=== PATIENT | male | born 1940 | race Caucasian/White ===

== ENCOUNTER → 2020-05-17 07:52 | Outpatient (BNVA) | payer MEDICARE, BC, SELFPAY | PROVIDERS: PCP Family Medicine; Referring Provider Family Medicine; Visit Provider Student in an Organized Health Care Education/Training Program | DX: M16.12 Unilateral primary osteoarthritis, left hip (principal) | CPT/HCPCS: 99203 ==

== ENCOUNTER 2020-06-24 01:36 | Outpatient (CLI) | payer MEDICARE, BC, SELFPAY ==
--- NOTE | 2020-06-24 14:11 | DI.RAD_ITS ---
EXAM: RF JOINT INJECTION FLUORO GUID CLINICAL HISTORY: L HIP INJ UNDER FLUORO,PRIMARY OA LT HIP, M16.12 TECHNIQUE: 2D and realtime digital imaging was performed. CONTRAST MATERIAL: Refer to procedure report. COMPARISON: No exams were available for comparison FINDINGS: Fluoroscopy was provided for Dr. Silva during left hip joint injection. Please refer to the monica hawk report for complete details. Fluoro time: 7 seconds IMPRESSION:
--- NOTE | 2020-06-24 14:15 | W.PROCNOTE ---
Date of service: 06/24/20 Time of Service: 14:15 Procedure Note Date of procedure: 06/24/20 Procedure: Left Hip Injection with Fluoroscopic Guidance Surgeon/Proceduralist/Physician: Xavier Silva Procedure Diagnosis: Left Hip Osteoarthritis Procedure Indications: Dileep has had persistent pain of the LEFT hip and groin. Noninvasive measures have been tried. To serve as both diagnostic and therapeutic, an injection under fluoroscopy was recommended. I had discussed the risks of the procedure and the patient elected to proceed. Procedure Description: Dileep was greeted in the flouroscopy room. The correct side was identified and the consent was reviewed with the patient and signed. The patient was then placed in the supine position on the fluoroscopy table. The LEFT hip was then prepped with Chloraprep. The anterolateral injection starting point was identiifed by bony landmarks and fluoroscopy. The skin and soft tissue in the tract of the injection was anesthetized with 1% Lidocaine. A spinal needle was then inserted deep into the hip joint at the level of the lateral femoral neck under fluoroscopic guidance. A small amount of Omnipaque solution was injected to confirm intraarticular placement. Once confirmed, the hip was injected with 6cc of 0.5% Bupivicaine and 80mg of Depo-Medrol. A bandaid was placed on the injection site. The patient tolerated the procedure well and noted improvement in pre-injection pain.
[2020-06-24] MEDS: Omnipaque 300 MG/ML 10 ML BTL IJ (14:32)
[2020-06-24] MEDS: Bupivacaine 0.5% Pres-Free 10 ML VIAL 6 ML IV (14:34)
[2020-06-24] MEDS: methylPREDNISolone ACETATE 80 MG/ML VIAL IM (14:35)
== END 2020-06-24 01:56 ==
PROVIDERS: PCP Family Medicine; Visit Provider Student in an Organized Health Care Education/Training Program
DX: M16.12 Unilateral primary osteoarthritis, left hip (principal); M25.562 Pain in left knee
CPT/HCPCS: 20610; 77002; J1040

== ENCOUNTER 2020-09-02 13:41 | Outpatient (CLI) | payer MEDICARE, BC, SELFPAY ==
--- NOTE | 2020-09-02 13:15 | DI.RAD_ITS ---
EXAM: XR PELVIS AP CLINICAL HISTORY: pre op L JONNY. TECHNIQUE: 2D digital imaging was performed. COMPARISON: CR PELVIS W/HIP LAT 1V LEFT from 02/03/2020 FINDINGS: Moderate degenerative changes are seen at the hips, left greater than right. There is joint space na rrowing subchondral sclerosis and periarticular spurring present. The bones are intact and normally mineralized. IMPRESSION: Moderate degenerative changes of the hips. DATA REPOSITORY: RADIATION DOSE DELIVERED:
== END 2020-09-02 13:42 | disposition home or self-care (01) ==
LOC: DIORS 13:42
PROVIDERS: PCP Family Medicine; Referring Provider Family Medicine; Visit Provider Physician Assistant
DX: M16.0 Bilateral primary osteoarthritis of hip (principal)
CPT/HCPCS: 72170

== ENCOUNTER 2020-09-10 02:47 | Outpatient (CLI) | payer MEDICARE, BC, SELFPAY ==
[2020-09-10 10:36] LABS: HCT 43.1 % (40.0-50.0); HGB 13.9 g/dL (13.5-17.5); MCH 29.9 pg (27.0-33.0); MCHC 32.3 % (32.0-36.0); MCV 92.7 fL (80-95); MPV 9.2 fL (8.0-11.0); Platelet Count 266 10^3/uL (130-400); RBC 4.65 10^6/uL (4.36-5.78); RDW 12.8 % (11.8-14.1); RDW-SD 43.5 fL; WBC 5.38 10^3/uL (4.4-10.8)
[2020-09-10 12:05] LABS: ALT 68 U/L (16-63); AST 55 U/L (15-37); Albumin 3.5 g/dL (3.4-5.0); Alkaline Phosphatase 219 U/L (46-116); Anion Gap 4.4 mmol/L (3-11); BUN 17 mg/dL (7-18); Bilirubin, Total 0.7 mg/dL (0.2-1.0); CO2 32.6 mmol/L (21.0-32.0); CREATININE 0.9 mg/dL (0.70-1.30); Calcium 8.9 mg/dL (8.5-10.1); Calculated LDL 75 mg/dL (<100); Chloride 105 mmol/L (98-107); Cholesterol 141 mg/dL (<200); Glucose 90 mg/dL (74-106); HDL Cholesterol 59 mg/dL (40-60); Potassium 4.5 mmol/L (3.5-5.1); Sodium 142 mmol/L (136-145); Total Protein 6.8 g/dL (6.4-8.2); Triglyceride 35 mg/dL (<150)
== END 2020-09-10 02:48 | disposition home or self-care (01) ==
LOC: LBO 02:47
PROVIDERS: PCP Family Medicine; Visit Provider Student in an Organized Health Care Education/Training Program
DX: M25.552 Pain in left hip (principal); M16.12 Unilateral primary osteoarthritis, left hip; E78.00 Pure hypercholesterolemia, unspecified; Z01.818 Encounter for other preprocedural examination; Z01.812 Encounter for preprocedural laboratory examination
CPT/HCPCS: 36415; 80048; 80053; 80061; 85027; 86850; 86900; 86901

== ENCOUNTER 2020-09-10 02:47 | Outpatient (CLI) | payer MEDICARE, BC, SELFPAY ==
[2020-09-10 11:18] LABS: Source Nasal/Nares
[2020-09-10 12:02] LABS: Iron 61 ug/dL (65-175); Total Iron Binding Capacity 257 ug/dL (250-450); Transferrin Sat 24 % (20-55)
[2020-09-10 15:02] LABS: COVID-19 PCR Negative (Negative)
[2020-09-13 08:41] LABS: Transferrin 180 mg/dL (201-352)
== END 2020-09-10 02:48 | disposition home or self-care (01) ==
LOC: LBO 02:48
PROVIDERS: PCP Family Medicine; Visit Provider Student in an Organized Health Care Education/Training Program
DX: D64.9 Anemia, unspecified (principal); M25.552 Pain in left hip; M16.12 Unilateral primary osteoarthritis, left hip; Z20.822 Contact with and (suspected) exposure to COVID-19; Z01.818 Encounter for other preprocedural examination; Z01.812 Encounter for preprocedural laboratory examination
CPT/HCPCS: 36415; 80053; 80061; 85027; 86850; 86900; 86901; 87635; U0003; 83540; 83550; 84466

== ENCOUNTER 2020-09-14 06:16 | Day surgery (SDC) | payer MEDICARE, BC, SELFPAY ==
[2020-09-14] VITALS (12 sets, daily range): BP systolic 91–127; BP diastolic 38–73; PULSE 54–77; RESP 12–18; TEMP 36.2–36.5; O2SAT 97–99
[2020-09-14] MEDS: Acetaminophen 500 MG TAB 1000 MG PO (07:15)
[2020-09-14] MEDS: Celecoxib 200 MG CAP 400 MG PO (07:15)
[2020-09-14] MEDS: Lactated Ringers 1,000 ML 80 ML IV ×2 (07:28→10:33)
[2020-09-14] MEDS: ceFAZolin 2 GM/50 ML BAG IVPB (07:35)
--- NOTE | 2020-09-14 07:35 | W.PM.DS.N ---
Date of service: 09/14/20 Time of Service: 13:44 DS: Diagnosis Discharge Diagnosis (1) Primary osteoarthritis of left hip: Status: Acute Discharge Plan Disposition Patient Disposition: HOME Condition: Good Discharge Details Reason For Visit: Left Hip DJD Attending Provider: Xavier Silva Primary Care Provider: Fabian Herzog Home Meds and New Rx's Prescriptions: New celecoxib 200 mg capsule 200 mg PO BID PRN (Reason: pain) Qty: 60 RF: 1 aspirin 81 mg tablet,delayed release (DR/EC) 81 mg PO BID Qty: 60 RF: 0 acetaminophen 500 mg tablet 1,000 mg PO Q8H PRN (Reason: pain) Qty: 90 RF: 3 pantoprazole 40 mg tablet,delayed release (DR/EC) 40 mg PO DAILY Qty: 30 RF: 0 docusate sodium [Colace] 100 mg capsule 100 mg PO BID PRNQty: 10 RF: 0 oxycodone 5 mg tablet 5 mg PO Q4H Qty: 12 RF: 0 Continued tamsulosin [Flomax] 0.4 mg capsule 0.4 mg PO DAILY RF: 0 atorvastatin 20 mg tablet 20 mg PO DAILY RF: 0 ascorbic acid (vitamin C) 1,000 mg Tablet 1 g PO QAM RF: 0 [id number] [id number] mg Tablet 1 tab PO QDAY RF: 0 Discontinued aspirin [Adult Aspirin Regimen] 81 mg tablet,delayed release (DR/EC) 81 mg PO DAILY RF: 0 Discharge Instructions Additional Instructions: Total Hip Discharge Instructions Activity: The most important activity is to walk. You should try to take short walks a few times a day. You have no restrictions on movement or positioning, but do not try to force what you do. You will find some stiffness and weakness with hip flexion (lifting your knee). Do not try to strengthen this too early, continue to practice walking and stairs and this will come. - Outpatient physical therapy can be helpful to help return you to a normal gait and improve your flexibility and strength. This can start around 2 weeks. For some patients, it?s not necessary. Usually this is determined at the time of discharge or at the first post-operative visit. - You should wear the SARAH hose on both legs for 2 weeks. Dressing: Keep the surgical dressing in place for at least one week. After the first week it may be removed and replace with light gauze and tape or nothing. It may get wet after 3 days but avoid soaking the dressing. If it gets wet, just lightly pat dry. The dressing may get wet but if it starts to come off, it is okay to remove it. Once the initial dressing is removed or comes off, it is important to always keep some gauze between skin folds, especially when you are sitting. Spend some time with the wound exposed when you are lying flat as the incision does wrinkle onto itself. Medications: - You should take Tylenol and an anti-inflammatory Celebrex as your primary pain control medications. If the Celebrex is too expensive or not covered, please call the office for another alternative (Advil/Ibuprofen or Naproxen/Aleve). - You have been prescribed a stronger pain medication Oxycodone for breakthrough pain, take as needed as prescribed. - You have also been prescribed a stomach acid reduction agent Pantoprozole to help reduce stomach acid and reflux. - You will be taking Aspirin 81mg twice a day for DVT prevention unless instructed otherwise. - If you have constipation you should take Colace or Miralax (both [id number]). It takes most people 3-4 days to have a bowel movement. Follow-up: 2 weeks If you have any acute concerns or questions, please do not hesitate to contact the office at [phone]. You may contact Dr. Silva with any questions after hours through the hospital at [phone] or on his cell phone at [phone]. Stand Alone Forms: Anesthesia Discharge Inst. Referrals: Xavier Silva MD [ [facility] STAFF PHYSICIAN] - Activity:: Activity as Tolerated Shower/Bathe:: 72 hours Diet:: As Tolerated Discharge Orders Discharge Orders: Discharge Order (Routine); Ordered 09/14/20 Ordered By: Xavier Silva DS: Summary Time Spent with Patient providing and/or coordinating discharge services: Less than 30 minutes Status at Discharge Functional status at discharge: uses cane/walker Overall status at discharge: patient is progressing back to baseline Mental Status: mental status grossly normal Speech and Movement: speech and movement normal Mood: congruent mood Affect: normal affect Exam Psych Mental Status: mental status grossly normal Speech and Movement: speech and movement normal Mood: congruent mood Affect: normal affect DS: Data Vitals/I&O Vitals and I&O: Vital Signs Temperature 36.2 C L 09/14/20 06:43 Pulse 77 09/14/20 06:43 Pulse Rhythm Regular 09/14/20 06:43 Respiratory Rate 16 09/14/20 06:43 Respiratory Depth Normal 09/14/20 06:43 Blood Pressure 121/69 09/14/20 06:43 Pulse Oximetry 99 09/14/20 06:43 Oxygen Delivery Method Room Air 09/14/20 06:43 Oxygen Flow Rate 0 09/14/20 06:43 Pain Level 2 09/14/20 06:43 Intake & Output 09/13/20 09/13/20 09/14/20 11:59 23:59 11:59 Weight 68.946 kg Other: Voiding Methods Toilet [facility] Medical History (Updated 09/14/20 @ 07:40 by Manny Ovalle) Anemia Crohn's disease Hepatitis A Staph aureus infection After right knee scope. 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 Carpal tunnel syndrome on both sides H/O left knee surgery multiple H/O right knee surgery multiple with final partiel knee replacement. History of ankle surgery History of arthroscopy of right shoulder 6 surgeries. 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 S/P arthroscopy of left shoulder 2 surgeries. Social History Smoking/Tobacco Use Status: Never Smoking risk assessment performed?: Yes Alcohol Intake: current Alcohol Intake frequency: a few times a week Alcohol type: beer Drug use: Never Substance use type: does not use Do you feel safe at home: Yes Do you feel safe in your relationship?: Yes
[2020-09-14] MEDS: Ketorolac 30 MG/ML VIAL (08:30)
[2020-09-14] MEDS: Bupivacaine 0.25% Pres-Free 30 ML VIAL (08:30)
--- NOTE | 2020-09-14 08:44 | DI.RAD_ITS ---
EXAM: XR HIP LT IN OR CLINICAL HISTORY: left femur fracture TECHNIQUE: 2D and realtime digital imaging was performed. CONTRAST MATERIAL: Refer to procedure report. COMPARISON: CR XR PELVIS AP from 09/02/2020 FINDINGS: Fluoroscopy was provided for Dr. Silva during the performance of a left hip replacement. Please refer to the procedure report for complete details. Fluoro time: 37.2 seconds IMPRESSION: RADIATION DOSE DELIVERED:
[2020-09-14] MEDS: fentaNYL 100 MCG/2 ML VIAL IVP (10:20)
--- NOTE | 2020-09-14 11:59 | PT.INIE ---
Date of service: 09/14/20 Time of Service: 11:59 PT Notes Visit Reasons: Left Hip DJD Physical Therapy Day Surgery Initial Evaluation Date: 09/14/2020 Referring Doctor: Xavier Silva MD PT Orders: PT CONSULT: Eval/treat. Precautions: WBAT on leftL LE with bilateral axillary crutches. Patient Profile/Admitting Diagnosis: Dileep is a 80-year-old male with primary unilateral osteoarthritis of the left hip and is status post left total hip arthroplasty on postoperative day 0. PMHX: Surgical History (Updated 05/17/20 @ 08:29 by RY Renee) H/O left knee surgery multiple H/O right knee surgery multiple History of arthroscopy of right shoulder History of open heart surgery Recovery 2012 S/P arthroscopy of left shoulder Social History/Home Situation: Lives alone in a private home with 2 step to enter and rails on B sides. 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 Lived and active life. Equipment Owned/DME: [employer] crutches Subjective: Patient reports being dizzy at the outset. Agreeable to getting out of stretcher and mobilizing. Complained of increased dizziness and being sick to the stomach after covering a distance of about 150 feet. Objective: General Observation: Mepilex Ag over surgical incision. TEDS on B legs. Mental Status: 3/10 at rest in the L hip, 5/10 with ambulation ROM: Right Lower Extremity: Hip flexion WFL. Hip abduction WFL. Knee flexion WFL. Ankle dorsiflexion WFL. Ankle plantarflexion WFL. Left Lower Extremity: Hip flexion WFL. Hip abduction WFL. Knee flexion WFL. Ankle dorsiflexion WFL. Ankle plantarflexion WFL. Strength: Right Lower Extremity: Hip flexors 5/5. Hip abductors 5/5. Knee flexors 5/5. Knee extensors 5/5. Ankle dorsiflexors 5/5. Ankle plantarflexors 5/5. Left Lower Extremity:Hip flexors 4/5. Hip abductors 4/5. Knee flexors 5/5. Knee extensors 4/5. Ankle dorsiflexors 5/5. Ankle plantarflexors 5/5. Sensation: Numb in B gluteal areas and indicated a chronic numbness in the lateral side of the L leg from previous venous harvest for his heart surgery Bed Mobility/Transfers: Supine to sit independent Sit to stand contact guard assist Stand to sit contact guard assist Bed to chair contact guard assist Gait: Tolerated up to 150 feet of hallway ambulation using bilateral axillary crutches before he was advised to sit down as he was demonstrating mild instability with accompanying dizziness and reporting at least 5/10 pain in the L hip. He needed contact-guard assist from PT and wheelchair follow from nurse Bryant for safety. He complained of being sick to his stomach also. Vital signs were retaken by Nurse Bryant with BP of 103/43 mmHg and oxygen saturation of 95% on room air. Balance: Static Sitting: Normal Dynamic Sitting: Normal Static Standing: Fair Dynamic Standing: fair Special Tests: Mobility Limitations Standardized Measure [facility] 6 clicks Basic Mobility Inpatient Short Form: Raw Score: 20 CMS Score: 36% deficit Informed Consent/Education: Patient instructed in purpose of PT consult. Packet containing L JONNY exercise protocol has been given to patient. Education and training on initial set of exercises that can be done at home have been completed with patient. Assessment: Dileep requires the use of bilateral axillary crutches for all mobility ADL performance to maximize independence and reduce fall risk at home. Stair negotiation assessment not completed due to patient report of dizziness and abdominal discomfort. A second session will be done in order to patient give patient time to recover some more and for HEP instruction. Patient presents with clinical signs and symptoms consistent with current/admitting diagnoses that have resulted to mobility limitations and gait instability as demonstrated by the following impairment level findings: 1. Decreased strength to left hip major muscle groups 2. Impaired standing balance 3. Dizziness 4. Abdominal discomfort Impairments are contributing to the following functional limitations: 1. Inability to safely ambulate without assistive device 2. Increase completion time for mobility ADL performance 3. Increased fall risk Patient is assessed as a [id number] moderate complexity based on the following: History: 80-year-old male with impairment level findings, functional limitations, and past medical history as indicated above Examination: Demonstrable impairment in strength, balance, and mobility level with underlying impairments and functional limitations as documented above Presentation: Evolving Decision Makin moderate Goals: N/A. PT evaluation and 1-2 treatment sessions only for functional mobility training on the stairs using recommended AD and for HEP instruction. Plan of Care/Treatment Plan: N/A. PT evaluation and 1-2 treatment session only for functional mobility training on the stairs using recommended AD and for HEP instruction. PT INTERVENTION RECEIVED TODAY: Assessment for and fitting of appropriate assistive device. Guided patient through bed mobility, transfers, and mobility ADL performance on level surfaces and stairs using bilateral axillary crutches in order to reduce fall risk. Educated and trained patient on HEP performance to maximize post-surgical functional outcomes. DISCHARGE RECOMMENDATIONS: Home when cleared by orthopedic surgeon. Patient will benefit from the use of bilateral axillary crutches to maximize independence and reduce fall risk at home. May benefit from outpatient physical therapy services to stay return to independent mobility level without an assistive device. TREATMENT CODE/TIME: 03891 x 25 minutes, 04864 x 16 minutes beginning at 11:59 AM. Thank you for the opportunity to participate in the care of this patient. Thank you for the opportunity to participate in the care of this patient. Lucretia Raya PT, DPT, CLT [facility] [place], [place]
--- NOTE | 2020-09-14 14:42 | PT.INDS ---
Date of service: 09/14/20 Time of Service: 14:42 PT Notes Visit Reasons: Left Hip DJD Physical Therapy DSU Discharge Summary Date: 09/14/2020 Dates of service: 09/15/2019 only Referring Doctor: Xavier Silva MD PT Orders: PT CONSULT: Eval/treat. Precautions: WBAT on leftL LE with bilateral axillary crutches. Patient Profile/Admitting Diagnosis: Dileep is a 80-year-old male with primary unilateral osteoarthritis of the left hip and is status post left total hip arthroplasty on postoperative day 0. PMHX: Surgical History (Updated 05/17/20 @ 08:29 by RY Renee) H/O left knee surgery multiple H/O right knee surgery multiple History of arthroscopy of right shoulder History of open heart surgery Recovery 2012 S/P arthroscopy of left shoulder Social History/Home Situation: Lives alone in a private home with 2 step to enter and rails on B sides. 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 Lived and active life. Equipment Owned/DME: [employer] crutches Subjective: Patient reports feeling a lot better and ready to tackle stairs for this afternoon session. Objective: General Observation: Mepilex Ag over surgical incision. TEDS on B legs. Mental Status: None reported ROM: Right Lower Extremity: Hip flexion WFL. Hip abduction WFL. Knee flexion WFL. Ankle dorsiflexion WFL. Ankle plantarflexion WFL. Left Lower Extremity: Hip flexion WFL. Hip abduction WFL. Knee flexion WFL. Ankle dorsiflexion WFL. Ankle plantarflexion WFL. Strength: Right Lower Extremity: Hip flexors 5/5. Hip abductors 5/5. Knee flexors 5/5. Knee extensors 5/5. Ankle dorsiflexors 5/5. Ankle plantarflexors 5/5. Left Lower Extremity:Hip flexors 4/5. Hip abductors 4/5. Knee flexors 5/5. Knee extensors 4/5. Ankle dorsiflexors 5/5. Ankle plantarflexors 5/5. Sensation: Intact as to pain and light pressure in bilateral lower extremities Bed Mobility/Transfers: Sit to stand standby assist Stand to sit standby assist Bed to chair standby assist Gait: Tolerated up to 100 feet of hallway ambulation using bilateral axillary crutches with standby assist of PT and wheelchair follow of nurse Miller for safety. Balance: Static Sitting: Normal Dynamic Sitting: Normal Static Standing: Fair Dynamic Standing: fair Assessment: Reported feeling better with the dizziness and stomach upset gone during the afternoon session. Demonstrated much improved stability with using bilateral axillary crutches during ambulation activity and required moderate verbal cueing to slow down while managing steps. Patient presents with clinical signs and symptoms consistent with current/admitting diagnoses that have resulted to mobility limitations and gait instability as demonstrated by the following impairment level findings: 1. Decreased strength to left hip major muscle groups 2. Impaired standing balance Impairments are contributing to the following functional limitations: 1. Inability to safely ambulate without assistive device 2. Increase completion time for mobility ADL performance 3. Increased fall risk DISCHARGE RECOMMENDATIONS: Home when cleared by orthopedic surgeon. Patient will benefit from the use of bilateral axillary crutches to maximize independence and reduce fall risk at home. May benefit from outpatient physical therapy services to stay return to independent mobility level without an assistive device. TREATMENT CODE/TIME: 29974 x 46 minutes beginning at 14:42 PM. Thank you for the opportunity to participate in the care of this patient. Lucretia Raya PT, DPT, CLT [facility] [place], [place]
--- NOTE | 2020-09-15 06:24 | ROE_ITS ---
Date of service: 09/14/20 Time of Service: 09:04 Operative Note Operative Note DATE OF PROCEDURE: 09/14/20 PRE-OP DIAGNOSIS: Left Hip Osteoarthritis POST-OP DIAGNOSIS: same PROCEDURE: Left Anterior Total Hip Arthroplasty SURGEON: Xavier Silva MARINE ELECTRONICS TECHNICIAN: Fallon Mehta ANESTHESIA TYPE: General LMA/ETT Refer to Anesthesia Record ESTIMATED BLOOD LOSS: 250 PATHOLOGY: none sent COMPLICATIONS: None Patient was transported to: PACU Patient's condition: stable Implants: 1. Depuy [place] Acetabular Component, 54mm 2. Depuy Acetabular Liner, [id number] 3. Depuy Corail Standard 125 degree Collared Femoral Stem, Size 14 4. Depuy Altrx Ceramic Femoral Head, Size 36+5mm Indications: I have seen Enrique in clinic for symptoms of hip arthritis, confirmed with radiographic findings. Enrique has exhausted nonoperative methods and was having significant limitations in daily function and desired better function and less pain. I discussed the technical details of a hip replacement. I explained the risks of the procedure to include, but not limited to, bleeding, infection, pain, stiffness, fracture, damage to nerves and vessels, damage to muscles and tendons, loosening, instability, leg length inequality, need for repeat procedure, blood clot and cardiopulmonary demise. Despite these risks, [NAME] elected to proceed. Findings: There was significant signs of arthritis throughout the hip. Multiple and large lateral neck osteophytes were present with calcified anterior labrum. Procedure Description: Enrique was greeted in the preoperative holding area where the correct side was identified and marked. The consent was reviewed with the patient and signed. The history and physical was updated. All questions were answered. He was taken back to the operating room. A general anesthestic was then administered. The feet were wrapped with cast padding and Coban and then placed into the boot liners and then into the boots. Care was taken to protect the skin and make sure the heels were fully down and the boots were stable. The patient was then positioned onto the HANA table. Both legs were held in a neutral position. SCDs were applied. The patient was then slid down onto a peroneal post. Prophylactic antibiotics in the form of Cefazolin were administered. 1g of Tranxemic Acid was given intravenously within 30 minutes of incision. The left leg was then prepped with Chloraprep and draped in a standard fashion. A second prep with Chloraprep was performed prior to placement of a shower-curtain type drape with Iodine impregnated skin protection. A timeout to confirm correct identity, side and site, procedure, allergies, anesthesia, and medical concerns was performed. An obliquely oriented incision was made starting lateral to the ASIS and running distal over the Tensor Fascia Ivonne (TFL) muscle belly toward the fibular head, approximately 10cm. The skin and soft tissue was dissected sharply, through Sam?s fascia, and to the fascia of the TFL. With the fascia and superior border of the IT band identified, the fascia was incised with a new knife just above any perforators from the IT band. The TFL muscle belly was bluntly dissected away from the fascia and moved laterally. The fat between TFL and rectus was identified to ensure the dissection was not within the TFL. Blunt dissection created space between abductors and the capsule and retractor was placed over the lateral femoral neck. The fibers of the rectus femoris tendon were identified and these were freed from the anterior capsule. A second cobra retractor was placed around the medial femoral neck. The TFL was further retracted laterally to show the deep fascia. Careful dissection through this layer identified three main crossing vessels of the lateral femoral circumflex. These were cauterized in multiple locations and then cut without any noticeable bleeding. The TFL was further released bluntly from the deep fascia to expose anterior hip capsule and fat The Herve orthopaedic retractor was then placed beneath the TFL and against sartorius and medial soft tissues to protect and retract the soft tissues. A T-capsulotomy was then performed starting at the superior lateral acetabulum and moving distally to the intertrochanteric ridge. These capsular flaps were tagged with a No. 1 Ethibond and elevated from within. The capsular flaps were released to the shoulder of the lateral neck and to the lesser trochanter to give excellent visualization of the proximal femur. A neck osteotomy was performed using an oscillating saw based on preoperative t emplates. This cut started in the shoulder and of the lateral neck and exited medially. The saw was at all times directed medially to avoid injury to the greater trochanter. Gross traction was applied to the leg and the osteotomy opened. The femoral head was removed with a corkscrew, making sure to protect the TFL on its exit. Traction was released after head removal. This was measured on the back table to determine the starting reamer size. Portions of the rectus obscuring visualization were minimally elevated off the superior acetabulum. An anterior retractor was placed over the anterior wall between capsule and labrum and attached to the Gripper retraction system. The femur was rotated to 90 degrees and medial capsule was fully released until the lesser trochanter was palpable and visible; the femur was returned to 30 degrees. A posterior retractor was placed similarly between capsule and labrum. This provided excellent visualization. The contents of the cotyloid fossa were removed with electrocautery and the labrum was removed with a knife. There was a notable floor osteophyte. There was significant chondromalacia of the superior acetabulum. Acetabular reaming began with a 50mm reamer. This first reaming was directed anterior to posterior and medial to get down to the true floor. This was inspected and reamed until the true floor was reached. The anterior retractor was then released and entry and exit was provided by traction on the capsular flaps. I then reamed sequentially up to a 54mm reamer where good fit was obtained. The larger reamers were oriented based on anatomical reference of the anterior and lateral gaytan to ensure proper abduction and anteversion. Positioning and size was confirmed with the fluoroscopy. A 54mm Depuy [place] acetabular component was selected. The acetabulum was reamed around the periphery with the selected acetabular size to prevent a rim fit. The deep tissues were irrigated. The acetabular component was then impacted in a position of about 40-45 degrees of abduction and 15-20 degrees of anteversion, using the patient?s anatomy as the ultimate landmark. Fluoroscopy was used to confirm this. There was excellent surveillance systems analyst of the acetabular component and the inserting handle was removed. The acetabular liner, Depuy [id number] polyethylene liner, was inserted and lined up with the tines of the acetabular component. There was no soft tissue interposition. The liner was then impacted into position and confirmed to be well-seated. A portion of the marilyn-articular cocktail was then injected around the acetabulum into the capsule and periosteum. This cocktail consisted of 50cc of 0.25% Bupivicaine and 20cc of Exparel and 30mg of Ketorolac. The leg was rotated to 120 degrees. Any remaining medial capsule was released until the lesser trochanter was easily palpable. A retractor was placed medially. The lateral capsule was further released into the shoulder to allow access to the greater trochanter. A Miller retractor was placed over the greater trochanter which allowed the trochanter to flip in front of the capsule for excellent exposure. The leg was brought down into maximal extension and 20 degrees of adduction while ensuring there was no impingement on the acetabulum. Any remnant capsule within the trochanter was released. Piriformis and obturator externis were identified and protected. There was excellent access to the proximal femur. The lateral neck remnant was removed with a rongeur. A blunt canal probe was used to identify the canal and trajectory for later broaching. A box osteotome initiated the broach course. A small curved rasp and a curved curette were used to work laterally. Broaching then began with a size 8 Corail broach. This was inserted manually around the trochanter and into the canal before mallet blows. The broach was seated to a few millimeters below the cut level based on the neck cut and the preoperative template. Sequential broaching was continued with the [employer] pneumatic broaching device until a tight fit was obtained with good rotational control of the femur. A trial standard neck was inserted along with a +5 trial head. The leg was brought out of extension and adduction and then reduced with traction and internal rotation. The leg was stable anteriorly in a position of 30 degrees of extension and 90 degrees of external rotation. Fluoroscopy was used to ensure there was no fracture and the stem was seated well. Leg lengths were checked with an AP pelvis and pelvic reference points. [employer] navigation system was used to confirm appropriate positioning and leg length and offset. There was too much leg length with the standard 135 neck option but the offset was correct. Instead of trying to advance the stem, or go down a size and advance it, I switched to the 125 degree standard neck which kept the same offset but decreased the leg length. Once content with the desired offset and leg lengths, the leg was brought back into extension, external rotation and adduction. The periosteum and surrounding tissue was injected with remaining portion of the marilyn-articular cocktail. The proximal femur was irrigated as well as the deep tissues. The Aspyrauy Corail standard 125 collared stem, size 14, was then manually inserted into the proximal femur making sure to control rotation. It was then malleted into position with light blows, giving breaks to allow bone expansion and decrease risk of fracture. The selected Depuy Altrx Ceramic Head, size 36+5mm, was then placed onto the clean and dry trunnion and secured with impaction onto the tapered fit. The leg was brought back out of extension and adduction and reduced with traction and internal rotation. Stability was confirmed with no shuck at 90 degrees of external rotation and 30 degrees of extension. No impingement through range of motion arc. Final x-ray images were obtained with fluoroscopy to confirm adequate positioning and no intraoperative fracture. The deep tissues were thoroughly irrigated with Irrisept chlorhexadine solution. I repaired the indirect head of the rectus with a #1 Vicryl given its size. The capsule was then reapproximated with the previously placed Ethibond sutures and an additional #1 Vicryl. The TFL fascia was finally closed with a No. 2 Stratafix, barbed suture. Deep tissues were then reapproximated with 0 Vicryl and a running 2-0 Vicryl. The skin was closed with a running 4-0 Monocryl in a subcuticular fashion. This was reinforced with skin glue. A Mepilex silver dressing was applied. At the end of the case, all counts were correct. Enrique was transferred to the hospital bed without difficulty and suffering no apparent complication. Enrique has a good prognosis. Physical therapy will start today and without restrictions, weight-bearing as tolerated. Aspirin 81mg BID will be used for DVT prophylaxis.
== END 2020-09-14 16:12 | disposition home or self-care (01) ==
PROVIDERS: PCP Family Medicine; Visit Provider Student in an Organized Health Care Education/Training Program
PROC: (CPT 27130; principal; 2020-09-14 07:30)
DX: M16.12 Unilateral primary osteoarthritis, left hip (principal); I25.10 Atherosclerotic heart disease of native coronary artery without angina pectoris; Z95.1 Presence of aortocoronary bypass graft; E78.00 Pure hypercholesterolemia, unspecified
CPT/HCPCS: 20985; 27130; C1776; 97162; 97530; NC; 73501; J0690; J1100; J1885; J2405; J2704; J3010

== ENCOUNTER 2020-09-30 09:29 | Outpatient (CLI) | payer MEDICARE, BC, SELFPAY ==
--- NOTE | 2020-09-30 09:15 | DI.RAD_ITS ---
EXAM: XR HIP LT 1V INDICATION: post op. COMPARISON: MR MRI-LOWER EXT ANY JOINT LT WITHOUT CONTR from 02/27/2020 CR XR PELVIS AP from 09/02/2020 CR XR PELVIS AP from 09/02/2020 XR HIP LT IN OR from 09/14/2020 CR XR PELVIS AP from 09/30/2020 CR XR PELVIS AP from 09/30/2020 TECHNIQUE: 2D digital imaging was performed. FINDINGS: There has been no change in the alignment of the left hip prosthesis when compared intraoperative im ages. No abnormal surrounding bony lucencies are seen. Moderate degenerative changes are again note d in the right hip. DATA REPOSITORY: RADIATION DOSE DELIVERED:
== END 2020-09-30 09:30 | disposition home or self-care (01) ==
LOC: DIORS 09:30
PROVIDERS: PCP Family Medicine; Referring Provider Family Medicine; Visit Provider Physician Assistant Surgical
DX: Z47.1 Aftercare following joint replacement surgery (principal); Z96.642 Presence of left artificial hip joint
CPT/HCPCS: 72170; 73501

== ENCOUNTER → 2020-10-25 10:01 | Outpatient (BNVA) | payer MEDICARE, BC, SELFPAY | PROVIDERS: PCP Family Medicine; Referring Provider Family Medicine; Visit Provider Student in an Organized Health Care Education/Training Program | DX: Z47.1 Aftercare following joint replacement surgery (principal); Z96.642 Presence of left artificial hip joint ==

== ENCOUNTER 2021-05-31 11:15 | Outpatient (CLI) | payer MEDICARE, BC, SELFPAY ==
--- NOTE | 2021-05-31 11:00 | DI.RAD_ITS ---
Exam(s) XR SHOULDER RT COMPLETE 2+V EXAM: XR SHOULDER RT COMPLETE 2+V CLINICAL HISTORY: R shoulder pain. TECHNIQUE: 2D digital imaging was performed of the right shoulder. Two images were obtained. AP, G rashey, Y-view and axillary views were obtained. COMPARISON: No exams were available for comparison FINDINGS: BONES: No acute fracture is present. No bony destructive lesion is seen. Postsurgical changes are see n in the humeral head. There also appears to be resection of the distal right clavicle. JOINTS: No dislocation present. Degenerative changes are seen at the glenohumeral joint. SOFT TISSUE: Normal. IMPRESSION: No acute abnormality. DATA REPOSITORY: RADIATION DOSE DELIVERED:
== END 2021-05-31 11:16 | disposition home or self-care (01) ==
LOC: DIORS 11:15
PROVIDERS: PCP Family Medicine; Referring Provider Family Medicine; Visit Provider Student in an Organized Health Care Education/Training Program
DX: M25.511 Pain in right shoulder (principal); M19.011 Primary osteoarthritis, right shoulder
CPT/HCPCS: 99203; 99213; 73030

== ENCOUNTER 2021-06-07 01:23 | Outpatient (CLI) | payer MEDICARE, BC, SELFPAY ==
--- NOTE | 2021-06-07 06:30 | DI.MRI_ITS ---
Exam(s) MR UPPER JOINT RT WO EXAM: MR UPPER JOINT RT WO CLINICAL HISTORY: R SHOULDER PAIN,oa rt shoulder, [id number]. TECHNIQUE: Multiplanar multisequence MRI was performed. COMPARISON: CR XR SHOULDER RT COMPLETE 2+V from 05/31/2021 CR XR SHOULDER RT COMPLETE 2+V from 05/31/2021 FINDINGS: BONES: There is no fracture or contusion pattern. There is artifact in the humeral head and at the ac romioclavicular joint from prior surgery. JOINTS: There has been resection of a portion of the distal acromion. Degenerative changes are seen at the glenohumeral joint with articular cartilage thinning periarticular spurring and joint space na rrowing. There is a small amount of fluid in the joint space. TENDONS: Supraspinatus: There is tendinosis of the supraspinatus. The insertion site is compromised due to ar tifact. No definite full-thickness tear is seen. A small partial tear cannot be excluded. Infraspinatus: Unremarkable. Subscapularis: There is tendinosis of the subscapularis tendon. Teres Minor: Unremarkable. Biceps and [place]: Portions of the biceps anchor are obscured due to artifact. No definite biceps te ndon tear. MUSCLES: Unremarkable. GLENOID LABRUM: Overall the glenoid labrum appears heterogeneous which may reflect degeneration and/o r tear. The findings are most marked anteriorly and superiorly. SOFT TISSUES: Unremarkable. LIGAMENTS: Unremarkable. OTHER: Subacromial and subdeltoid bursae are unremarkable. IMPRESSION: 1. Postsurgical and degenerative changes seen in the shoulder with resection of the distal clavicle o rthopedic anchors in the humeral head and degenerative changes seen at the glenohumeral joint. 2. Tendinosis of the supraspinatus and subscapularis tendons. No definite full-thickness tear is see n in the supraspinatus tendon. The artifact limits examination, and a small partial tear cannot be e xcluded. 3. Heterogeneity of the glenoid labrum which may be due to degeneration. Tear cannot be excluded. DATA REPOSITORY:
== END 2021-06-07 01:43 ==
PROVIDERS: PCP Family Medicine; Visit Provider Student in an Organized Health Care Education/Training Program
DX: M25.511 Pain in right shoulder (principal); M19.011 Primary osteoarthritis, right shoulder; M75.81 Other shoulder lesions, right shoulder
CPT/HCPCS: 73221

== ENCOUNTER → 2021-06-15 08:45 | Outpatient (BNVA) | payer MEDICARE, BC, SELFPAY | PROVIDERS: PCP Family Medicine; Referring Provider Family Medicine; Visit Provider Student in an Organized Health Care Education/Training Program | DX: S46.011D Strain of muscle(s) and tendon(s) of the rotator cuff of right shoulder, subsequent encounter (principal); M19.011 Primary osteoarthritis, right shoulder; X58.XXXD Exposure to other specified factors, subsequent encounter | CPT/HCPCS: 20610; 99213; J1030 ==

== ENCOUNTER 2021-09-19 11:25 | Outpatient (CLI) | payer MEDICARE, BC, SELFPAY ==
--- NOTE | 2021-09-19 09:45 | DI.RAD_ITS ---
Exam(s) XR HIP LT AP LAT ONLY EXAM: XR HIP LT AP LAT ONLY CLINICAL HISTORY: ANNUAL F/U L JONNY. TECHNIQUE: 2D digital imaging was performed. Two views. COMPARISON: CR XR HIP LT 1V from 09/30/2020 FINDINGS: There has been no change in the alignment of the left hip prosthesis or appearance of the surrounding bone. DATA REPOSITORY: RADIATION DOSE DELIVERED:
--- NOTE | 2021-09-19 10:30 | DI.RAD_ITS ---
Exam(s) XR KNEE RT 2V AP,LAT EXAM: XR KNEE RT 2V AP,LAT CLINICAL HISTORY: R knee pain. TECHNIQUE: 2D digital imaging was performed. Two views COMPARISON: No exams were available for comparison FINDINGS: BONES: No acute fracture is present. No bony destructive lesion is seen. JOINTS: There is a medial femoral tibial joint space prosthesis. There is mild narrowing of the late ral femoral tibial joint which shows mild periarticular spurring. More prominent spurring is seen at the patellofemoral joint. A small joint effusion is seen. SOFT TISSUE: Mild vascular calcifications. IMPRESSION: Small joint effusion. Patellofemoral degenerative changes. Medial femoral tibial joint space prosth esis. DATA REPOSITORY: RADIATION DOSE DELIVERED:
== END 2021-09-19 11:26 | disposition home or self-care (01) ==
LOC: DIORS 11:25
PROVIDERS: PCP Family Medicine; Referring Provider Family Medicine; Visit Provider Student in an Organized Health Care Education/Training Program
DX: M25.561 Pain in right knee (principal); M25.461 Effusion, right knee; M17.11 Unilateral primary osteoarthritis, right knee; Z96.642 Presence of left artificial hip joint
CPT/HCPCS: 99214; 73502; 73560

== ENCOUNTER → 2021-09-20 08:53 | Outpatient (BNVA) | payer MEDICARE, BC, SELFPAY | PROVIDERS: PCP Family Medicine; Referring Provider Family Medicine; Visit Provider Student in an Organized Health Care Education/Training Program | DX: M75.51 Bursitis of right shoulder (principal); M19.011 Primary osteoarthritis, right shoulder | CPT/HCPCS: 99214 ==

== ENCOUNTER 2022-02-23 21:03 | Emergency (ER) | payer MEDICARE, BC, SELFPAY ==
[2022-02-23 21:20] VITALS: PULSE 62; RESP 18; TEMP 37; O2SAT 99
--- NOTE | 2022-02-23 21:33 | W.ED.GENAD ---
Discharge Plan Disposition Patient Disposition: HOME Condition: Good Discharge Details Clinical Impression: Gout attack Primary Care Provider: Fabian Herzog ED Provider: Ousmane Vega Home Meds and New Rx's Prescriptions: No Action aspirin 81 mg capsule 81 mg PO DAILY tamsulosin [Flomax] 0.4 mg capsule 0.4 mg PO DAILY atorvastatin 20 mg tablet 20 mg PO DAILY ascorbic acid (vitamin C) 1,000 mg Tablet 1 g PO QAM leflnus-prghtiiol-fknk 333-133-5 mg Tablet 1 tab PO QDAY Discharge Instructions Instructions: Gout (ED) Additional Instructions: At this time your symptoms appear consistent with gout or pseudogout. Please avoid eating any foods with preserved meats, dairy, or high proteins. Please apply a generous amount of the Voltaren gel to the affected area every 6 hours. Please take 1000 mg of Tylenol every 6 hours. If you do not notice any improvement with this over the next 48 to 72 hours then please fill the prescriptions for the allopurinol and the prednisone and take them as directed. These can cause irritation to your stomach, so make sure that you are taking it with Tums or Maalox to prevent any gastric irritation. If you notice any blood in your stool, or abdominal pain stop taking these medications immediately. Please stay off of your foot for the next 2 to 3 days to help it heal. Avoid any direct cold air to the foot. As we discussed together if you notice spreading of the redness, fever or chills or sweats, this would represent evidence of infection. Please return immediately for reassessment if that occurs. If you notice any worsening of your symptoms, or any new symptoms such as vomiting, diarrhea, fever, chills, shortness of breath, chest pain, numbness, weakness, or fainting , please return immediately to the emergency department for reevaluation. Please follow up with your primary care provider as soon as possible for reassessment and reevaluation. As always, it was a pleasure participating in your medical care today. Referrals: Fabian Herzog [Primary Care Provider] - Medical Decision Making 82-year-old male with a past medical history of CABG, sarcoidosis, Crohn's, open heart surgery 20 years ago, lupus, presents today for pain in his right great toe. He has some mild bunions in that area on the medial aspect, he has had these for years. He is an aggressive skier, he hikes daily, and noticed yesterday evening some mild pain in that area. He took some ibuprofen and this helped somewhat, and then the following morning which was today he noticed that it was still present significantly worse. Slightly worsened with ice, but definitely improved with heat. Pain was made worse with touch and palpation. Is notably sensitive. He denies any fever or chills whatsoever. His brother has a history of gout, and patient felt that his symptoms are similar and has come in for further assessment. He denies any personal history of gout before but he does admit that because of the increased heat he has been not doing his normal cooking, and instead is been having sandwiches every day and sometimes twice a day which is not normal for him. Other than this he denies any caviar, excessive cheese intake, or other dietary changes. No other complaints at this time. No other modifying factors. Exam demonstrates mild swelling and redness and notable tenderness over the medial bunion the patient's foot. It is at the distal first metatarsal of the great toe on the right foot. No spreading redness to suggest cellulitis. No fever or chills to suggest infection. Bedside ultrasound shows no evidence of significant effusion or fluid collection that can be tapped at this time. Suspect a combination of arthritis, and potential gout versus pseudogout. Because of the patient's history of Crohn's and stomach and intestinal irritability, we will avoid oral ibuprofen. Patient will be given topical Voltaren gel, and recommend Tylenol as well. Recommend treatment with this for the next 24 to 48 hours. If no improvement, then we will start steroids, and at the patient's request allopurinol which I do feel is reasonable in this scenario. I do worry about colchicine with his stomach irritability and so we will hold off on that. Will discharge home. No clinical evidence of infection at this point to suggest need for antibiotic. No clinical evidence of a septic joint. Discussed red flags that would warrant return for reassessment. I have extensively reviewed the treatment plan and discharge instructions with the patient. I have addressed all patient concerns at this time. The patient was made aware of what symptoms to monitor for that would warrant a return to the emergency department. Discussed the plan with the patient, they demonstrate verbal understanding and agreement with our assessment and plan at this time. The documentation in this chart was dictated using Hol[employer] dictation software. Please excuse any dictation errors. HPI General Date/Time Provider Initiated Documentation: 02/23/22 21:10. HPI Narrative: 82-year-old male with a past medical history of CABG, sarcoidosis, Crohn's, open heart surgery 20 years ago, lupus, presents today for pain in his right great toe. He has some mild bunions in that area on the medial aspect, he has had these for years. He is an aggressive skier, he hikes daily, and noticed yesterday evening some mild pain in that area. He took some ibuprofen and this helped somewhat, and then the following morning which was today he noticed that it was still present significantly worse. Slightly worsened with ice, but definitely improved with heat. Pain was made worse with touch and palpation. Is notably sensitive. He denies any fever or chills whatsoever. His brother has a history of gout, and patient felt that his symptoms are similar and has come in for further assessment. He denies any personal history of gout before but he does admit that because of the increased heat he has been not doing his normal cooking, and instead is been having sandwiches every day and sometimes twice a day which is not normal for him. Other than this he denies any caviar, excessive cheese intake, or other dietary changes. No other complaints at this time. No other modifying factors. Patient also denies any trauma for the foot Related Data Home Medications Medication Instructions Recorded Confirmed atorvastatin 20 mg tablet 20 mg PO DAILY 05/17/20 02/23/22 tamsulosin 0.4 mg capsule (Flomax) 0.4 mg PO DAILY 05/17/20 02/23/22 ascorbic acid (vitamin C) 1,000 mg 1 g PO QAM 09/14/20 02/23/22 tablet rzlizhz-gjbfttaqa-vszi 333 mg-133 1 tab PO QDAY 09/14/20 02/23/22 mg-5 mg tablet aspirin 81 mg capsule 81 mg PO DAILY 05/31/21 02/23/22 Allergies Allergy/AdvReac Type Severity Reaction Status Date / Time No Known Allergies Allergy Verified 02/23/22 21:40 General Stated Complaint: Orthopedic GINA: 4 Review of Systems All systems reviewed & are unremarkable except as noted in HPI and below PFSH All Active Problems Gout attack (Acute) Bursitis of right shoulder (Acute) Primary osteoarthritis, right shoulder (Acute) Right knee pain (Acute) Traumatic tear of right rotator cuff (Acute) Osteoarthritis of right shoulder (Acute) History of left hip replacement (Acute 09/14/20) Primary osteoarthritis of left hip (Acute) S/P steroid intra-articular injection: 03/17/2020 Medical History Anemia Crohn's disease Hepatitis A Staph aureus infection After right knee scope. Surgical History Benign tumor Right breast and under left arm. Carpal tunnel syndrome on both sides H/O left knee surgery multiple H/O right knee surgery multiple with final partiel knee replacement. History of ankle surgery History of arthroscopy of right shoulder 6 surgeries. 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 S/P arthroscopy of left shoulder 2 surgeries. Social History Smoking/Tobacco Use Status: Never Smoking risk assessment performed?: Yes Alcohol Intake: current Alcohol Intake frequency: a few times a week Alcohol type: beer Drug use: Never Substance use type: does not use Current gender identity: male Do you feel safe at home: Yes Do you feel safe in your relationship?: Yes Exam Narrative Exam Narrative: 1.Const: Well-nourished, Well-developed, appearing stated age 2.Eyes: PERRL, no conjunctival injection, and symmetrical lids. 3.ENT: Atraumatic external nose and ears. Moist MM. Neck: Symmetric, trachea midline, No thyromegaly. 4.CVS: +S1/S2, No murmurs or gallops. Peripheral pulses 2+ and equal in all extremities. Brisk capillary refill in all extremities. 5.RESP: Unlabored respiratory effort. Clear to auscultation bilaterally. No wheezes rales or rhonchi 6.GI: Soft, Nontender/Nondistended, No hepatosplenomegaly. No guarding or rebound. 7.MSK: Patient's right foot over the base of the right great toe at the distal metatarsal demonstrates some mild redness in that area, minimal warmth, and notable tenderness to the touch. Minimal trace swelling around that. No well demarcated line to suggest cellulitis. Bedside ultrasound demonstrates no large fluid collection for tapping. No spreading redness proximally or up to the ankle or alvarenga. No evidence of trauma 8.Skin: Warm, Dry. No rashes or lesions. 9.Neuro: cementer helper II-XII grossly intact. Sensation grossly intact, no focal neurologic deficits. 10.Psych: (AAO) x3. Appropriate mood and affect Course Vital Signs Vital signs: Vital Signs Temperature 37.0 C 02/23/22 21:20 Pulse 62 02/23/22 21:20 Respiratory Rate 18 02/23/22 21:20 Pulse Oximetry 99 02/23/22 21:20 Temperature 37.0 C 02/23/22 21:20 Temperature Source Temporal Artery Scan 02/23/22 21:20 Pulse 62 02/23/22 21:20 Respiratory Rate 18 02/23/22 21:20 Pulse Oximetry 99 02/23/22 21:20 Oxygen Delivery Method Room Air 02/23/22 21:20 Oxygen Flow Rate 0 02/23/22 21:20 Pain Level 6 02/23/22 21:20
[2022-02-23] MEDS: Acetaminophen 500 MG TAB 1000 MG PO (21:36)
[2022-02-23] MEDS: Diclofenac 1% Gel 100 GM TUBE TP (21:37)
== END 2022-02-23 21:56 | disposition home or self-care (01) ==
PROVIDERS: Emergency Provider Student in an Organized Health Care Education/Training Program; PCP Family Medicine
DX: M10.9 Gout, unspecified (principal)
CPT/HCPCS: 99282

== ENCOUNTER 2022-09-07 01:21 | Outpatient (CLI) | payer MEDICARE, BC, SELFPAY ==
--- NOTE | 2022-09-07 | DI.CT_ITS ---
Exam(s) CT CHEST W EXAM: CT CHEST W CLINICAL HISTORY: DYSPNEA, R06.00 TECHNIQUE: Imaging Protocol: Axial computed tomography images with coronal and sagittal reformatted images were created and reviewed CONTRAST MATERIAL: Intravenous: Omnipaque 350 Contrast volume:70 mL COMPARISON: No exams were available for comparison FINDINGS: Pulmonary parenchyma: Scarring versus atelectasis left lung base. Scarring along the right minor fis sure. No consolidation. Calcification right lung base. Tracheobronchial tree: No bronchiectasis or mucous plugging. Mediastinum and Luanne: No dominant adenopathy or fluid collection. Pleura: No effusion or pneumothorax. Pleural thickening with calcifications seen at left posterior rafael ng base. Heart: The heart is mildly dilated. Status post CABG. Aorta: Thoracic aorta non-dilated. Mild atherosclerotic changes. Upper abdomen: Unremarkable. Bones: Degenerative changes. Sternal wires. Soft tissues: Unremarkable. IMPRESSION: Left basilar pleural thickening with calcification and and adjacent scarring. Benign calcification r ight lung base. RADIATION DOSE DELIVERED: 488.6mGy.cm Total DLP DATA REPOSITORY: All CT scans at this facility are submitted to the National Radiology Data Registry (NRDR) Dose Index Registry (DIR) with the [employer] (ACR). RADIATION OPTIMIZATION: All CT scans at this facility use at least one of these dose optimization te chniques: automated exposure control; mA and/or kV adjustment per patient size (includes targeted exa ms where dose is matched to clinical indication); or iterative reconstruction.
[2022-09-07 10:30] LABS: BUN 22 mg/dL (7-18); Estimated GFR 75.61 (mL/min/1.73m2)
[2022-09-07] MEDS: Omnipaque 350 MG/ML 500 ML BTL-Imaging package 70 ML IJ (11:18)
[2022-09-07] MEDS: Normal Saline - Diluent 50 ML VIAL IJ (11:19)
== END 2022-09-07 01:41 ==
PROVIDERS: PCP Family Medicine; Visit Provider Family Medicine
DX: R06.09 Other forms of dyspnea (principal); J98.4 Other disorders of lung; Z95.1 Presence of aortocoronary bypass graft; Z01.812 Encounter for preprocedural laboratory examination
CPT/HCPCS: 84520; 71260; 82565

== ENCOUNTER 2022-11-16 12:42 | Outpatient (REF) | payer MEDICARE, BC, SELFPAY | END 2022-11-16 12:43 | disposition home or self-care (01) | LOC: LBN 12:42 | PROVIDERS: PCP Family Medicine; Visit Provider Nurse Practitioner Family | DX: R19.7 Diarrhea, unspecified (principal) | CPT/HCPCS: 87329 ==

== ENCOUNTER 2023-04-30 15:20 | Emergency (ER) | payer MEDICARE, BC, SELFPAY ==
--- NOTE | 2023-04-30 | DI.CT_ITS ---
Exam(s) CT CERVICAL SPINE WO EXAM: CT CERVICAL SPINE WO CLINICAL HISTORY: trauma 5 months ago, ongoing pain no neuro. TECHNIQUE: Imaging Protocol: Axial computed tomography images with coronal and sagittal reformatted images were created and reviewed COMPARISON: No exams were available for comparison FINDINGS: CERVICAL SPINE: There is no evidence of acute fracture. However, there does appear to be an element of atlantoaxial subluxation. The distance between the anterior aspect of the odontoid process and the posterior chinyere ex of the anterior C1 arch is 4.4 mm. There is no fracture of C1 arch nor of C2 evident. There is, however, advance now degenerative narrowing of the articulation between the left side of C1 and C2. Similar finding not seen on the right side at this level. There is chronic advanced disc space narrowing at C4-5, C5-6 and C6-7 levels. There is some degenera tive anterolisthesis C7 upon T1, approximately 3 mm. No facet malalignment at this level nor elsewhe re in the cervical spinal column. Facet arthropathy evident but no significant facet joint malalignment. No significant osseous lesions evident. IMPRESSION: There is an element of atlantoaxial subluxation without an acute fracture evident. Probably related to ligamentous injury. Multilevel chronic degenerative disc disease in the mid-lower cervical spine. Discussed by phone with ER provider. RADIATION DOSE DELIVERED: Total DLP DATA REPOSITORY: All CT scans at this facility are submitted to the National Radiology Data Registry (NRDR) Dose Index Registry (DIR) with the [employer] (ACR). RADIATION OPTIMIZATION: All CT scans at this facility use at least one of these dose optimization te chniques: automated exposure control; mA and/or kV adjustment per patient size (includes targeted exa ms where dose is matched to clinical indication); or iterative reconstruction.
[2023-04-30 15:28] VITALS: BP 128/68; PULSE 94; RESP 15; TEMP 36.8; O2SAT 96
--- NOTE | 2023-04-30 16:27 | ED.GENADUL_ITS ---
Discharge Plan Disposition Patient Disposition: Home Condition: Stable Discharge Details Clinical Impression: History of neck injury Primary Care Provider: Unknown,Unknown ED Provider: Didi Michael Home Meds and New Rx's Prescriptions: Continued aspirin 81 mg capsule 81 mg PO DAILY tamsulosin [Flomax] 0.4 mg capsule 0.4 mg PO DAILY atorvastatin 20 mg tablet 20 mg PO DAILY ascorbic acid (vitamin C) 1,000 mg Tablet 1 g PO QAM mcxfsra-xkrbrajrl-pabj 333-133-5 mg Tablet 1 tab PO QDAY Discharge Instructions Instructions: Cervical Strain (DC), Soft Cervical Collar (ED) Additional Instructions: Return here tomorrow morning for MRI Referrals: Unknown,Unknown [Primary Care Provider] - (Return to the emergency department tomorrow for MRI of your cervical spine) Medical Decision Making This is an 83-year-old male patient who presents with ongoing pain following a traumatic injury about 5 months ago with ongoing lateral left neck pain. Symptoms do seem more muscle skeletal. He discussed his case with a friend today who advised him to come here for MRI stating that his mother had the similar symptoms and she had a cancerous tumor in her neck. He has no neurodeficits with full sensation motor function and strength to his bilateral upper extremities. He states he had plain films in [place] which were unrevealing think it is reasonable to obtain a CAT scan and with no danger symptoms of neurodeficit suspicion of cord compression or abscess will recommend outpatient follow-up with primary care provider if imaging unrevealing.. CT results reviewed with radiologist and I think it is prudent to schedule him for MRI here tomorrow as I will not be able to defer him to his PCP as he currently no longer has one and is trying to establish with [facility] with a reported 3-month waiting list. He will be discharged to home and advised to return here tomorrow for MRI Medical Records Medical records reviewed: Yes I reviewed the patient's medical records. Imaging Data Radiologic Study: Imaging: CT Scan Radiologist's impression: Exam(s) a CT:CT cervical spine wo Exam(s) CT CERVICAL SPINE WO EXAM: CT CERVICAL SPINE WO CLINICAL HISTORY: trauma 5 months ago, ongoing pain no neuro. TECHNIQUE: Imaging Protocol: Axial computed tomography images with coronal and sagittal reformatted images were created and reviewed COMPARISON: No exams were available for comparison FINDINGS: CERVICAL SPINE: There is no evidence of acute fracture. However, there does appear to be an element of atlantoaxial subluxation. The distance between the anterior aspect of the odontoid process and the posterior cortex of the anterior C1 arch is 4.4 mm. There is no fracture of C1 arch nor of C2 evident. There is, however, advance now degenerative narrowing of the articulation between the left side of C1 and C2. Similar finding not seen on the right side at this level. There is chronic advanced disc space narrowing at C4-5, C5-6 and C6-7 levels. There is some degenerative anterolisthesis C7 upon T1, approximately 3 mm. No facet malalignment at this level nor elsewhere in the cervical spinal column. Facet arthropathy evident but no significant facet joint malalignment. No significant osseous lesions evident. IMPRESSION: There is an element of atlantoaxial subluxation without an acute fracture evident. Probably related to ligamentous injury. Multilevel chronic degenerative disc disease in the mid-lower cervical spine. Discussed by phone with ER provider. HPI General Mode of arrival: ambulatory . Date/Time Provider Initiated Documentation: 04/30/23 15:23 . Limitations to Documentation: no limitations . Information obtained by: patient . HPI Narrative: This 83-year-old male patient who presents with complaints of left-sided neck pain which has been ongoing for at least 5 months. He did have a traumatic injury where he fell off a ladder was seen in [facility] imaging was u nremarkable but there was suspicion of ligamentous injury. He was placed in a c-collar and is states that his symptoms have not improved. He states that he was on steroids at the time which made matters worse. He has been using ibuprofen as he cannot take acetaminophen. He denies any numbness tingling or weakness distally. His pain is on the left side of his neck radiating up. He has been seeing physical therapy for his symptoms and he states that these have not helped. He states he is not currently established with a PCP and trying to establish with [facility] internal medicine. He presents here requesting an MRI as advised by a friend today after reviewing his symptoms. He also does go on to say that he has had this left-sided neck pain for up to at least 2 years when he went on a long car ride but states that the symptoms definitely exacerbated since his traumatic injury 5 months ago. Was scheduled for physical therapy today but decided to present here instead for imaging Related Data Home Medications Medication Instructions Recorded Confirmed atorvastatin 20 mg tablet 20 mg PO DAILY 05/17/20 04/30/23 tamsulosin 0.4 mg capsule (Flomax) 0.4 mg PO DAILY 05/17/20 04/30/23 ascorbic acid (vitamin C) 1,000 mg 1 g PO QAM 09/14/20 04/30/23 tablet nnoydyz-ntofncyot-vtng 333 mg-133 1 tab PO QDAY 09/14/20 04/30/23 mg-5 mg tablet aspirin 81 mg capsule 81 mg PO DAILY 05/31/21 04/30/23 Allergies Allergy/AdvReac Type Severity Reaction Status Date / Time No Known Allergies Allergy Verified 04/30/23 16:06 General Stated Complaint: Nk/Back Pain GINA: 3 Review of Systems All systems reviewed & are unremarkable except as noted in HPI and below PFSH All Active Problems (Updated 04/30/23 @ 17:17 by Didi Michael NP) History of neck injury (Acute) Bursitis of right shoulder (Acute) Primary osteoarthritis, right shoulder (Acute) Right knee pain (Acute) Traumatic tear of right rotator cuff (Acute) Osteoarthritis of right shoulder (Acute) History of left hip replacement (Acute 09/14/20) Primary osteoarthritis of left hip (Acute) S/P steroid intra-articular injection: 03/17/2020 Medical History Anemia Crohn's disease Hepatitis A Staph aureus infection After right knee scope. Surgical History Benign tumor Right breast and under left arm. Carpal tunnel syndrome on both sides H/O left knee surgery multiple H/O right knee surgery multiple with final partiel knee replacement. History of ankle surgery History of arthroscopy of right shoulder 6 surgeries. 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 S/P arthroscopy of left shoulder 2 surgeries. Social History Smoking/Tobacco Use Status: Never Smoking risk assessment performed?: Yes Alcohol Intake: current Alcohol Intake frequency: a few times a week Alcohol type: beer Drug use: Never Substance use type: does not use Current gender identity: male Do you feel safe at home: Yes Do you feel safe in your relationship?: Yes Exam Const General: cooperative, healthy appearing (Appears younger than stated age), comfortable, no acute distress and anxious Nutritional Appearance: average body habitus Orientation: alert, awake and oriented x3 HENMT Head: normal to inspection, normocephalic and atraumatic Face and sinus: normal facial exam Mouth: oral mucosae normal Neck Neck: normal visual inspection, trachea midline, supple, no anterior neck swelling, tender (mostly over trapezius), no torticollis and no JVD Chest Chest: normal inspection of the chest Resp Effort & Inspection: normal respiratory effort Cardio Rate: regular rate Rhythm: regular rhythm Neuro Cranial Nerves: able to elevate shoulders bilaterally Cognition: normal cognition Motor: muscle tone normal throughout and strength 5/5 throughout Sensory Exam: no sensory deficits noted Extrem Left upper extremity: normal to inspection and full ROM Course Vital Signs Vital signs: Vital Signs Temperature 36.8 C 04/30/23 15:28 Pulse 94 H 04/30/23 15:28 Respiratory Rate 15 04/30/23 15:28 Blood Pressure 128/68 04/30/23 15:28 Pulse Oximetry 96 04/30/23 15:28 Temperature 36.8 C 04/30/23 15:28 Temperature Source Temporal Artery Scan 04/30/23 15:28 Pulse 94 H 04/30/23 15:28 Respiratory Rate 15 04/30/23 15:28 Respiratory Effort Normal, Non-Labored 04/30/23 15:55 Blood Pressure 128/68 04/30/23 15:28 Blood Pressure Position Supine 04/30/23 15:28 Pulse Oximetry 96 04/30/23 15:28 Oxygen Delivery Method Room Air 04/30/23 15:28 Oxygen Flow Rate 0 04/30/23 15:28 Pain Level 9 04/30/23 15:28
== END 2023-04-30 17:26 | disposition home or self-care (01) ==
PROVIDERS: Emergency Provider Nurse Practitioner Acute Care
DX: S16.1XXA Strain of muscle, fascia and tendon at neck level, initial encounter (principal); M50.323 Other cervical disc degeneration at C6-C7 level; X58.XXXA Exposure to other specified factors, initial encounter
CPT/HCPCS: 99284; 72125; 99283

== ENCOUNTER → 2023-06-04 02:57 | Outpatient (CLI) | payer MEDICARE, BC, SELFPAY ==
--- NOTE | 2023-06-04 | DI.MRI_ITS ---
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 COMPARISON: MR MRI-LOWER EXT ANY JOINT LT WITHOUT CONTR from 02/27/2020 CR XR HIP LT 1V from 09/30/2020 CR XR PELVIS AP from 09/30/2020 CR XR SHOULDER RT COMPLETE 2+V from 05/31/2021 CR XR KNEE RT 2V AP,LAT from 09/19/[address] CERVICAL SPINE WO from 04/30/2023 FINDINGS: BONES: Vertebral body heights are maintained. Alignment is normal. Edema in the dens and left side of the lateral mass of C2. Small amount of surrounding fluid. Faint calcifications and pannus formati on noted on on prior CT. Small bony erosion also seen on CT. Slight widening between the anterior a rch of C1 and dens again noted. Slight C1-2 subluxations seen better on CT. The findings could be p osttraumatic or could be related to rheumatoid arthritis. CERVICAL CORD: Craniovertebral junction is unremarkable. The cervical cord is normal size and signal intensity. SOFT TISSUES: Unremarkable. C2-3: No disc herniation or bulge is identified. Leftneural foraminal narrowing. No significant cent ral canal stenosis. C3-4: No disc herniation or bulge is identified. No evidence of neural foraminal narrowing. No signif icant central canal stenosis. C4-5: Loss of disc height, endplate osteophytes as well as facet degenerative changes. Which cause b ilateral neural foraminal narrowing as well as central canal stenosis. C5-6: Loss of disc height, circum for lead projecting osteophytes and facet degenerative changes caus ing bilateral neural foraminal narrowing as well as mild central canal stenosis. C6-7: Severe loss of height. Circumferentially projecting osteophytes. Facet degenerative changes. Bilateral neural foraminal narrowing. Mild central canal stenosis. C7-T1: No disc herniation or bulge is identified. No evidence of neural foraminal narrowing. No signi ficant central canal stenosis. IMPRESSION: Widening of the C1-2 distance and mild C1-2 subluxation again identified. Findings could be posttrau matic or could represent chronic findings degenerative or possibly related to rheumatoid arthritis. Multilevel degenerative disc changes and facet degenerative changes causing multilevel bilateral neur al foraminal narrowing. On central canal stenosis is greatest at C4-5. DATA REPOSITORY:
== END ==
PROVIDERS: Visit Provider Family Medicine
DX: M48.02 Spinal stenosis, cervical region (principal)
CPT/HCPCS: 72141

== ENCOUNTER 2023-06-04 04:46 | Outpatient (CLI) | payer MEDICARE, BC, SELFPAY ==
[2023-06-04 10:09] LABS: ALT 48 U/L (16-63); AST 38 U/L (15-37); Albumin 3.5 g/dL (3.4-5.0); Alkaline Phosphatase 214 U/L (46-116); Bilirubin, Total 0.8 mg/dL (0.2-1.0); Calculated LDL 92 mg/dL (<100); Cholesterol 152 mg/dL (<200); HDL Cholesterol 52 mg/dL (40-60); Total Protein 6.9 g/dL (6.4-8.2); Triglyceride 41 mg/dL (<150)
[2023-06-04 10:18] LABS: Bilirubin, Direct 0.2 mg/dL (0.0-0.2)
== END 2023-06-04 04:47 | disposition home or self-care (01) ==
PROVIDERS: Internal Medicine Cardiovascular Disease; PCP Family Medicine; Visit Provider Nurse Practitioner Adult Health
DX: R74.8 Abnormal levels of other serum enzymes (principal)
CPT/HCPCS: 36415; 80061; 80076; 72141

== ENCOUNTER 2024-07-31 00:35 | Outpatient (CLI) | payer MEDICARE, BC, SELFPAY ==
--- NOTE | 2024-07-31 10:50 | DI.MRI_ITS ---
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 COMPARISON: CT CT CERVICAL SPINE WO from 04/30/2023 MR MR CERVICAL SPINE WO from 06/04/2023 FINDINGS: BONES: Vertebral body heights are maintained. Calcification again noted around the dens. Alignment is normal. Bone marrow signal intensity is within normal limits. CERVICAL CORD: Craniovertebral junction is unremarkable. The cervical cord is normal size and signal intensity. SOFT TISSUES: Unremarkable. C2-3: Slight disc bulging. No evidence of neural foraminal narrowing. No significant central canal s tenosis. C3-4: Slight disc bulging. Small endplate osteophytes. Bilateral neural foraminal narrowing. No sig nificant central canal stenosis. C4-5: Severe loss of disc height. Circumferentially projecting endplate osteophytes. Facet degenera tive changes.. Bilateralneural foraminal narrowing. Moderate central canal stenosis which appears so mewhat worse when compared with the previous exam.. C5-6: Severe loss of disc height. Small focal with small right paracentral osteophyte which appears to impinge on the cervical cord. Effacement of the anterior CSF space. Bilateral neural foraminal n arrowing. C6-7: Severe loss of disc height. Circumferentially projecting osteophytes. Facet degenerative hein ges. Bilateral neural foraminal narrowing. No significant central canal stenosis. C7-T1: No disc herniation or bulge is identified. No evidence of neural foraminal narrowing. No signi ficant central canal stenosis. IMPRESSION: Degenerative disc changes and facet degenerative changes throughout, greatest at C4-5 where there is moderate AP narrowing of the AP dimension of the spinal canal. Focal posterior osteophyte which appears to impinge on the cord at C5-6. The cord signal is normal. There is bilateral neural foraminal narrowing from C3-4 through C6-7. DATA REPOSITORY:
== END 2024-07-31 00:55 ==
PROVIDERS: PCP Family Medicine; Visit Provider Nurse Practitioner
DX: M48.02 Spinal stenosis, cervical region (principal); M99.61 Osseous and subluxation stenosis of intervertebral foramina of cervical region
CPT/HCPCS: 72141

== ENCOUNTER 2024-08-26 02:28 | Outpatient (CLI) | payer MEDICARE, BC, SELFPAY ==
--- NOTE | 2024-08-26 | DI.CT_ITS ---
Exam(s) CT CHEST WO EXAM: CT CHEST WO CLINICAL HISTORY: Lung nodule, R91.1. TECHNIQUE: Multi planar reconstructions were performed. CONTRAST MATERIAL: None COMPARISON: CT CT CHEST W from 09/07/2022 FINDINGS: CHEST: LUNGS: Scar-like nodular density along the right minor fissure is unchanged from 2 years ago. Large calcified granuloma in the lateral basal segment of the right lower lobe is also unchanged. There ar e no new focal right lung findings. In the opposite-left lung there is unchanged scarring in the left lower lobe lung pleural thickening with some pleural calcification noted. Possibly some rounded atelectasis but nevertheless unchanged inside from previous. However, there is increase in number of calcifications in the pleural plaque. MEDIASTINUM: There are calcified right hilar lymph nodes, consistent with the ipsilateral right lower lobe granuloma. There is also a small calcified lymph node in the subcarinal region. There is, how ever, no ominous hilar nor mediastinal adenopathy. Partially visualized thyroid appears unremarkable . CARDIAC: Were not a me wires. Heart size upper normal. No pericardial effusion.Caliber of the thora cic aorta is within normal limits. VISUALIZED UPPER ABDOMEN: Calcified granulomas noted in the spleen. Spleen size may be slightly prom inent but is not completely included in the field of view of this chest study. No adrenal masses. OSSEOUS: No significant osseous lesions.. IMPRESSION: 1. Stable benign-appearing right lung findings 2. Slight increase in amount of calcification within the left pleural scarring. The amount of lung s carring at this level appears unchanged. 3. New pleural effusions nor new intrathoracic adenopathy. RADIATION DOSE DELIVERED: 182.84mGy.cm Total DLP DATA REPOSITORY: All CT scans at this facility are submitted to the National Radiology Data Registry (NRDR) Dose Index Registry (DIR) with the [employer] ([employer]). RADIATION OPTIMIZATION: All CT scans at this facility use at least one of these dose optimization te chniques: automated exposure control; mA and/or kV adjustment per patient size (includes targeted exa ms where dose is matched to clinical indication); or iterative reconstruction.
== END 2024-08-26 02:48 ==
PROVIDERS: PCP Family Medicine; Visit Provider Family Medicine
DX: R91.1 Solitary pulmonary nodule (principal)
CPT/HCPCS: 71250

== ENCOUNTER 2024-10-22 12:43 | Outpatient (CLI) | payer MEDICARE, BC, SELFPAY ==
[2024-10-22 12:59] LABS: ALT 114 U/L (16-63); AST 92 U/L (15-37); Albumin 3.7 g/dL (3.4-5.0); Alkaline Phosphatase 265 U/L (46-116); Bilirubin, Direct 0.4 mg/dL (0.0-0.2); Bilirubin, Total 1.3 mg/dL (0.2-1.0); Total Protein 7.3 g/dL (6.4-8.2)
== END 2024-10-22 12:44 | disposition home or self-care (01) ==
LOC: LBO 12:43
PROVIDERS: PCP Family Medicine; Visit Provider Nurse Practitioner Adult Health
DX: R74.8 Abnormal levels of other serum enzymes (principal)
CPT/HCPCS: 36415; 80076

== ENCOUNTER 2025-04-28 10:55 | Outpatient (CLI) | payer MEDICARE, BC, SELFPAY ==
[2025-04-28 11:40] LABS: ALT 95 U/L (16-63); AST 69 U/L (15-37); Albumin 3.5 g/dL (3.4-5.0); Alkaline Phosphatase 221 U/L (46-116); Anion Gap 3.5 mmol/L (3-11); BUN 19 mg/dL (7-18); Bilirubin, Total 1.1 mg/dL (0.2-1.0); CO2 33.5 mmol/L (21.0-32.0); Calcium 9.0 mg/dL (8.5-10.1); Chloride 104 mmol/L (98-107); Cholesterol 164 mg/dL (<200); Glucose 88 mg/dL (74-106); HDL Cholesterol 70 mg/dL (>or=40); Potassium 4.3 mmol/L (3.5-5.1); Sodium 141 mmol/L (136-145); Total Protein 7.1 g/dL (6.4-8.2)
== END 2025-04-28 10:56 | disposition home or self-care (01) ==
LOC: LBO 10:55
PROVIDERS: PCP Family Medicine; Visit Provider Internal Medicine Cardiovascular Disease
DX: I25.10 Atherosclerotic heart disease of native coronary artery without angina pectoris (principal)
CPT/HCPCS: 36415; 80053; 80061